=== PATIENT | female | born 1940 ===

== ENCOUNTER → 2024-12-13 10:06 | Outpatient (REF) | payer SELFPAY ==
[2024-12-13 10:46] LABS: Hematocrit 36.9 % (37.0-47.0); Hemoglobin 12.2 g/dL (12.0-16.0); Mean Corp Hgb Conc. 33.1 g/dL (33.0-37.0); Mean Corpuscular Volume 88.1 fL (81.0-99.0); Platelet Count 208 10^3/uL (130-400); Red Cell Dist. Width 13.8 % (11.5-14.5)
[2024-12-13 10:57] LABS: Blood Urea Nitrogen 12 mg/dl (7-17); Calcium 9.0 mg/dl (8.4-10.2); Carbon Dioxide 28 mmol/L (22-30); Chloride 107 mmol/L (98-107); Glucose 77 mg/dl (70-99); Magnesium 2.2 mg/dl (1.6-2.3); Potassium 3.9 mmol/L (3.5-5.1); Sodium 138 mmol/L (135-145); eGFR > 60.00
== END ==
LOC: OLABN 10:06
PROVIDERS: ATTENDING PHYSICIAN Student in an Organized Health Care Education/Training Program
DX: I10 Essential (primary) hypertension (principal)
CPT/HCPCS: 36415; 80048; 83735; 85027

== ENCOUNTER → 2025-01-02 12:15 | Outpatient (REF) | payer BC, SELFPAY ==
[2025-01-02 13:14] LABS: Hematocrit 35.1 % (37.0-47.0); Hemoglobin 11.6 g/dL (12.0-16.0); Mean Corp Hgb Conc. 33.0 g/dL (33.0-37.0); Mean Corpuscular Volume 89.5 fL (81.0-99.0); Platelet Count 207 10^3/uL (130-400); Red Cell Dist. Width 14.0 % (11.5-14.5)
[2025-01-02 13:40] LABS: ALT (SGPT) 10 U/L (0-35); AST (SGOT) 15 U/L (14-36); Albumin 3.3 g/dl (3.5-5.0); Alkaline Phosphatase 92 U/L (38-126); Blood Urea Nitrogen 12 mg/dl (7-17); Calcium 8.7 mg/dl (8.4-10.2); Carbon Dioxide 30 mmol/L (22-30); Chloride 107 mmol/L (98-107); Glucose 68 mg/dl (70-99); HDL Cholesterol 41 mg/dl; LDL Cholesterol, Calculated 55 mg/dl; Potassium 3.6 mmol/L (3.5-5.1); Sodium 141 mmol/L (135-145); Total Protein 5.9 g/dl (6.3-8.2); Very Low Density Lipoprotein 10 mg/dl (0-30); eGFR > 60.00
[2025-01-02 14:26] LABS: Glycohemoglobin (HgbA1c) 5.3 % (4.0-5.9)
== END ==
LOC: OLABN 12:15
PROVIDERS: ATTENDING PHYSICIAN Student in an Organized Health Care Education/Training Program
DX: I10 Essential (primary) hypertension (principal); E78.5 Hyperlipidemia, unspecified; R73.9 Hyperglycemia, unspecified
CPT/HCPCS: 36415; 80053; 80061; 83036; 85025; 85027